=== PATIENT | female | born 1955 | race Caucasian/White ===

== ENCOUNTER → 2017-05-02 | Day surgery (SDC) | payer OTHER ==
[~2017-05-02] MED LIST: ACETAMINOPHEN 1000 MG/100 ML VIAL ONE; BALANCED SALT SOLN OPHT IRRIG 15 ML BTL ONE; BUPIVACAINE/EPINEPHRINE 0.25% 50 ML VIAL ONE; LIDOCAINE 1%/EPINEPHrine 1:200,000 PF SOLN 30 ML VIAL ONE; MIDAZOLAM HCL 2 MG/2 ML VIAL ONE; NEOMYCIN/POLYMYXIN/BACITRACIN OINT 15 GM TUBE ONE; NEOMYCIN/POLYMYXIN/HYDROCORT OTIC SUSP 10 ML BTL ONE; ONDANSETRON HCL 4 MG/2 ML VIAL IV PUSH ONE; PROPOFOL 200 MG/20 ML AMP IV ONE; VANCOMYCIN 500 MG VIAL ONE
--- NOTE | 2017-05-02 10:16 | TN ---
cc: MIGUEL SALCIDO M.D. DATE OF SURGERY: 05/02/2017 PREOPERATIVE DIAGNOSIS 1. Basal cell carcinoma located on the right nasal ala. 2. Basal cell carcinoma located on the left nasolabial fold. POSTOPERATIVE DIAGNOSIS 1. Basal cell carcinoma located on the right nasal ala. 2. Basal cell carcinoma located on the left nasolabial fold. PROCEDURE 1. Wide local excision of basal cell carcinoma located on the right nasal ala resulting in a primary defect of 2 x 2 cm. This required a cartilaginous graft from the right ear carlos and a nasolabial flap reconstruction fasciocutaneous for a secondary defect of 6.5 x 4 cm. 2. Wide local excision of a basal cell carcinoma located on the left nasolabial fold resulting in a primary defect of 1 x 1.5 cm. The secondary defect was 3 x 1.5 cm. This required intermediate repair. SURGEON Miguel Salcido MD, FACS ANESTHESIA A total of 20 cc of 1% lidocaine with epinephrine. ESTIMATED BLOOD LOSS Minimal. COMPLICATIONS None. DRAINS None. DETAILS OF PROCEDURE She was properly consented, marked and properly anesthetized. The skin was sterilized with Microcyn and sterile draping applied. Excision was done of the right nasal ala lesion and sent to pathology for frozen section which indeed showed that the patient had a clear margin, however, close proximity to the 6 o'clock margin. A further specimen was sent for permanent section from approximately 4-7 o'clock. The defect thereafter after this was 2 x 2 cm. The nasolabial fold was elevated preserving the proper alar blood supply in order to properly transfer this to the recipient site. In order to secure the base of the alar defect a 3 x 0.5 cm cartilaginous graft was harvested and secured in place in the usual fashion. Suture inset of the flap was done utilizing 5-0 Monocryl suture and 5-0 fast-absorbing gut. The cartilaginous graft was thereafter harvested through the posterior approach and after we harvested it we closed the wound in an intermediate repair fashion utilizing 5-0 Monocryl suture and 5-0 Prolene suture. Attention was directed to the left nasolabial fold where an ellipse incision was carried out of this nasolabial fold resulting in a primary defect including the lesion of 1 x 1.5 cm. The secondary defect was 3 x 1.5, and this was closed utilizing 5-0 Monocryl suture in the dermis and subcu. Absorbent dressing was applied. The patient was awakened, extubated in the operating room and transferred back to the post-anesthesia care unit in stable condition. No complications appreciated. The patient tolerated the procedure fairly well. MD NATALIE Gastelum/KAY /9:48 AM /10:02 AM [email or web address]
== END | disposition home or self-care (01) ==
LOC: ESDC 07:12
PROVIDERS: ATTEND Plastic Surgery
DX: C44.311 Basal cell carcinoma of skin of nose (principal)
CPT/HCPCS: 00160; 00300; 11642; 11643; 12042; 15732; 21235; 88305; 88331; J0131; J2250; J2405; J3010; J3370